=== PATIENT | male | born 1970 | race Two or more races ===

== ENCOUNTER 2016-08-12 18:37 | Emergency (ER) | payer SELFPAY ==
[2016-08-12 18:54] VITALS: BP 142/75; PULSE 74; RESP 19; TEMP 98.5; O2SAT 98
--- NOTE | 2016-08-12 19:22 | ED PDOC ---
Arrival/HPI - General Chief Complaint: Pain, Chronic Time Seen by Provider: 08/12/16 18:49 Historian: Patient - History of Present Illness Narrative History of Present Illness (Text): 08/12/16 19:25 45 y/o male presents to the emergency department with a complaint of left sided dental pain, facial pain, and intermittent chest pain described as "I feel the nerve from my face coming down to the tooth and reaching my chest" since Tuesday , 08/08/2016. Patient states he used Krazy Glue to stick his tooth back on twice within 2 years and he refilled it again on Tuesday for the first time again. Denies drainage. Past Medical History - Provider Review Nursing Documentation Reviewed: Yes - Psychiatric Hx Substance Use: Yes - Anesthesia Hx Anesthesia: No Family/Social History - Physician Review Nursing Documentation Reviewed: Yes Family/Social History: No Known Family HX Smoking Status: Heavy Smoker > 10 Cigarettes Daily Hx Alcohol Use: No Hx Substance Use: Yes Allergies/Home Meds Allergies/Adverse Reactions: Allergies No Known Allergies Allergy (Verified 08/12/16 19:06) Review of Systems - Patients Enrolled in [employer] [X]: A conversation was conducted with the primary medical doctor. - Physician Review All systems were reviewed & negative as marked: Yes - Review of Systems ENT: Other (Dental pain with left sided facial pain) Physical Exam Vital Signs Reviewed: Yes Vital Signs Temp Pulse Resp BP Pulse Ox 08/12/16 18:51 98.5 F 74 19 142/75 98 Temperature: Afebrile Blood Pressure: Normal Pulse: Regular Respiratory Rate: Normal Appearance: Positive for: Well-Appearing Pain Distress: None Mental Status: Positive for: Alert and Oriented X 3 - Systems Exam Head: Present: Atraumatic, Normocephalic Pupils: Present: PERRL Extroacular Muscles: Present: EOMI Mouth: Present: Other (Left lower molar surrounded with erythema and odd looking filogenia tooth noted. No drainage, puss, or bleeding from the gums. ) Psychiatric: Present: Alert, Oriented x 3 Medical Decision Making ED Course and Treatment: 08/12/16 18:49 Initial impression: Tooth infection Upon provider reevaluation patient is feeling better, is medically stable, and requires no further treatment in the ED at this time. Patient will be discharged home with Rx for Amoxil 500 mg and Toradol 10 mg. Counseling was provided and all questions were answered regarding diagnosis and need for follow up with referred dentist. There is agreement to discharge plan. Return if symptoms persist or worsen. Clinical Impression: Tooth Infection; Dental Caries Scribe Attestation: Documented by Gabby Umana, acting as a scribe for Krystle Francis PA-C. Provider Scribe Attestation: All medical record entries made by the Scribe were at my direction and personally dictated by me. I have reviewed the chart and agree that the record accurately reflects my personal performance of the history, physical exam, medical decision making, and the department course for this patient. I have also personally directed, reviewed, and agree with the discharge instructions and disposition. Reassessment Condition: Improved - Medication Orders Current Medication Orders: Discontinued Medications Tramadol HCl (Ultram) 50 mg PO STAT STA Stop: 08/12/16 19:50 Last Admin: 08/12/16 19:52 Dose: 50 mg Tramadol HCl (Ultram) Confirm Administered Dose 50 mg .ROUTE .STK-MED ONE Stop: 08/12/16 19:46 Disposition/Present on Arrival - Present on Arrival Any Indicators Present on Arrival: Yes - Disposition Have Diagnosis and Disposition been Completed?: Yes Diagnosis: Tooth infection Disposition: HOME/ ROUTINE Disposition Time: 18:52 Condition: STABLE Discharge Instructions (ExitCare): Dental [facility] (ED) Prescriptions: Amoxicillin [Amoxil 500 mg Cap] 500 mg PO BID #14 cap Ketorolac Tromethamine [Toradol] 10 mg PO TID #20 tab Referrals: [facility] [Outside]
== END 2016-08-12 20:22 | disposition home or self-care (01) ==
LOC: H.ER 18:37
DX: K02.9 Dental caries, unspecified (principal); K04.7 Periapical abscess without sinus